=== PATIENT | female | born 1995 | race Caucasian/White ===

== ENCOUNTER 2017-04-29 18:04 | Emergency (ER) | payer OTHER ==
--- NOTE | 2017-04-29 19:07 | ED Physician Documentation ---
Fall - HISTORIAN Historian: patient, parent - HPI Stated Complaint: Left ankle injury Chief Complaint: Lower Extremity Injury Additional Information: fell down 7-8 fl stairs w/lt ankle pain swelling ess inability to ambulate Onset: just prior to arrival Where: home Context: slipped r: moderate Associated Symptoms:: no loss of consciousness Location of Pain/Injury: denies: head, neck, upper back, mid back, lower back Injury to Right Extremity: none - ROS CONST: no problems - PAST HX Past History: none Allergies/Adverse Reactions: Allergies Allergy/AdvReac Type Severity Reaction Status Date / Time No Known Drug Allergies Allergy Unknown Verified 04/29/17 18:23 Home Medications: Ambulatory Orders Medication Instructions Recorded NK [NK] 03/18/15 - SOCIAL HX Smoking History: less than 1 pack/day Alcohol Use: none - FAMILY HX Family History: no significant history - VITAL SIGNS Vital Signs: Vital Signs Temp Pulse Resp BP Pulse Ox 98.2 F 79 16 118/60 98 04/29/17 18:17 04/29/17 18:17 04/29/17 18:17 04/29/17 18:17 04/29/17 18:17 - REVIEWED ASSESSMENTS Nursing Assessment Reviewed: Yes Vitals Reviewed: Yes ED Results Lab/Radiology - Radiology Radiology Impressions: lt ankle=no fx seen - Orders Orders: ED Orders Category Date Time Status ANKLE 3 VIEWS OR MORE [RAD] Stat Exams 04/29/17 Ordered UA [URINALYSIS] Routine Lab 04/29/17 Ordered URINE HCG Stat Lab 04/29/17 Ordered Fall Physical Exam - Physical Exam General Appearance: mild distress, moderate distress Head: No: no swelling, no obvious injury Neck: non-tender, painless ROM Eye: STEPHANIE, EOMI ENT: nml external inspection Resp/CVS: chest non-tender, breath sounds nml, heart sounds nml Abdomen: soft, non-tender Neuro: oriented x3, sensation nml, motor nml, mood/affect nml Skin: color nml Back: normal inspection - [place] Coma Score Eyes Open: Spontaneous Speech: Oriented Motor: Obeys Commands Discharge Clincal Impression: LEFT ANKLE SPRAIN Referrals: Sabrina Angulo MD [Primary Care Provider] - 2 Days Home Medications: Ambulatory Orders NK [NK] 03/18/15 Condition: Good Disposition: 01 HOME, SELF-CARE Decision to Admit: NO Decision Time: 19:06
[2017-04-29 19:14] VITALS: BP 122/68
--- NOTE | 2017-04-30 07:18 | Diagnostic Imaging Report ---
JAYNA CABRAL~ [facility] [address] [facility].[address] [address] ~ ~ ~ ~ Report Submission Date: Apr 29, 2017 7:00:16 PM CDT Patient ~ Study Name: BEN DODD ~ Date: Apr 29, 2017 6:37:35 PM CDT ~ Modality Type: CR Gender: F ~ Description: LOWER EXTREMITY : 94 ~ Institution: [facility] Physician: JAYNA CABRAL ~ ~ ~ ~ Left ankle, 3 views History: Fall, injury, pain Findings: The osseous, joints and soft tissue structures are normal. Impression: Normal. ~ Electronically signed on Apr 29, 2017 7:00:16 PM CDT by: Eulogio MCCLAIN
== END 2017-04-29 19:09 | disposition home or self-care (01) ==
LOC: ED 18:04
DX: S93.402A Sprain of unspecified ligament of left ankle, initial encounter (principal); X58.XXXA Exposure to other specified factors, initial encounter; Y93.9 Activity, unspecified; Y99.9 Unspecified external cause status
CPT/HCPCS: 73610; 99283

== ENCOUNTER 2018-06-30 19:41 | Emergency (ER) | payer OTHER ==
[2018-06-30 19:58] VITALS: BP 116/64
--- NOTE | 2018-06-30 20:01 | ED Physician Documentation ---
General Adult - HISTORIAN Historian: patient - HPI Stated Complaint: Left index finger laceration Chief Complaint: Laceration/Recheck/Suture Onset: hours (5) Timing: still present Severity: mild Further Comments: yes (she was using a knife and cut the tip of her left index finger. She is not sure when last tetanus shot was (we did find record) and she had normal feeling. Normal senstaion.) - ROS CONST: no problems - PAST HX Past History: none Surgeries/Procedures: other (T&A) Immunizations: UTD Allergies/Adverse Reactions: Allergies Allergy/AdvReac Type Severity Reaction Status Date / Time No Known Drug Allergies Allergy Unknown Verified 06/30/18 19:58 Home Medications: Ambulatory Orders Medication Instructions Recorded NK 03/18/15 - SOCIAL HX Smoking History: non-smoker Alcohol Use: none Drug Use: none - FAMILY HX Family History: No - VITAL SIGNS Vital Signs: Vital Signs Temp Pulse Resp BP Pulse Ox 99.1 F 92 H 18 116/64 100 06/30/18 20:15 06/30/18 20:15 06/30/18 20:15 06/30/18 20:15 06/30/18 20:15 - REVIEWED ASSESSMENTS Nursing Assessment Reviewed: Yes Vitals Reviewed: Yes ED Results Lab/Radiology - Orders Orders: ED Orders Category Date Time Status Cleanse with NS and Chlorhexid 1T Care 06/30/18 20:01 Active General Adult Physical Exam - PHYSICAL EXAM GENERAL APPEARANCE: no distress EENT: eye inspection normal NECK: normal inspection RESPIRATORY: no resp distress, chest non-tender, breath sounds normal CVS: reg rate & rhythm, heart sounds normal, equal pulses ABDOMEN: soft SKIN: warm/dry, other (left index finger with very superficial cut approx 2 cm in a half og pattern. FROM + Sensation + pulses + ) EXTREMITIES: non-tender, normal range of motion, no evidence of injury, no edema NEURO: oriented X3 Discharge Clincal Impression: Laceration Referrals: Sabrina Angulo MD [Primary Care Provider] - 2 Days Comments: 1. Keep area clean and dry 2. Notify PCP for any increased pain, redness, or drainage 3. Return to ER for any concerns Condition: Stable Disposition: 01 HOME, SELF-CARE Decision to Admit: NO Date of Decison to Admit: 06/30/18 Decision Time: 20:08
== END 2018-06-30 20:15 | disposition home or self-care (01) ==
LOC: ED 19:41
DX: S61.211A Laceration without foreign body of left index finger without damage to nail, initial encounter (principal); W26.8XXA Contact with other sharp object(s), not elsewhere classified, initial encounter; Y92.9 Unspecified place or not applicable; Y93.9 Activity, unspecified; Y99.9 Unspecified external cause status
CPT/HCPCS: 99282

== ENCOUNTER 2018-08-29 20:04 | Emergency (ER) | payer SELFPAY ==
--- NOTE | 2018-08-29 20:25 | ED Physician Documentation ---
General Adult - HISTORIAN Historian: patient - HPI Stated Complaint: rash under breast Chief Complaint: General Adult Additional Information: Lanced a pimple on right breast with a pin 5 days ago. Developed abscess that drained this evening, so came to ER. No previous abscesses. No recent antibiotics. No treatment other than ice and heat to the area. No other modifying factors or associated events. - ROS CONST: no problems - PAST HX Past History: none Surgeries/Procedures: other (tonsillectomy) Allergies/Adverse Reactions: Allergies Allergy/AdvReac Type Severity Reaction Status Date / Time No Known Drug Allergies Allergy Unknown Verified 08/29/18 20:18 Home Medications: Ambulatory Orders Medication Instructions Recorded NK 03/18/15 - SOCIAL HX Smoking History: non-smoker - FAMILY HX Family History: No - VITAL SIGNS Vital Signs: Vital Signs Temp Pulse Resp BP Pulse Ox 116/64 06/30/18 20:15 - REVIEWED ASSESSMENTS Nursing Assessment Reviewed: Yes Vitals Reviewed: Yes ED Results Lab/Radiology - Orders Orders: ED Orders Category Date Time Status Sulfamethoxazole/Trimethoprim [Bactrim Ds] Med 08/29/18 20:20 Once 1 each PO NOW ONE General Adult Physical Exam - PHYSICAL EXAM GENERAL APPEARANCE: moderate distress (crying, afraid) EENT: eye inspection normal, ENT inspection normal NECK: normal inspection, supple RESPIRATORY: no resp distress BACK: normal inspection SKIN: warm/dry, normal color (except right breast, 4-7 o'clock, with erythema, central opening with serous drainage. No induration or fluctuance.) EXTREMITIES: normal range of motion (gait and stance) NEURO: CN's nml as tested, motor nml, sensation nml Discharge Clincal Impression: Cutaneous abscess Referrals: Primary Doctor,No [Primary Care Provider] - 2 Days Additional Instructions: Use thorough handwashing. Don't share clothes or linens. Apply warm compresses to the area 4 times a day. Take all the antibiotics as prescribed until they are completely gone. Return to the ER if you are not getting better after 48 hours of antibiotics. Condition: Good Disposition: 01 HOME, SELF-CARE Decision to Admit: NO Decision Time: 20:30
[2018-08-29 20:32] VITALS: BP 118/63
[2018-08-29] MEDS: SULFAMETHOXAZOLE/TRIMETHOPRIM 1 EACH TABLET PO ONE (20:32)
== END 2018-08-29 20:36 | disposition home or self-care (01) ==
LOC: ED 20:04
DX: N61.1 Abscess of the breast and nipple (principal)
CPT/HCPCS: 99283; A9270

== ENCOUNTER 2019-09-10 01:21 | Emergency (ER) | payer SELFPAY ==
--- NOTE | 2019-09-10 01:54 | ED Physician Documentation ---
Sore Throat/Dental Pain - HISTORIAN Historian: patient - HPI Stated Complaint: "My throat feels like it my be swollen I am coughing up chunks" Chief Complaint: Sore Throat Onset: days ago (3) Context: Possible Infection Associated Symptoms: sore throat, moderate, runny nose, congestion. denies: fever, chills, unable to swallow Further Comments: yes (She states that her throat feels swollen she feels from coughing. She has a sore throat. She reports she has felt this way for three days tonight she decided to look in the mirror and she felt the back of her throat (not the front on the outside) looked like it was swollen and after discussion she could not see the back so she got scared and they came into the ER. NO fever Denies shortness of air. She) - ROS CONST: no problems CVS/RESP: denies: chest pain, shortness of breath GI/: denies: nausea MS/SKIN/LYMPH: denies: rash NEURO/PSYCH: denies: headache - PAST HX Past History: none Allergies/Adverse Reactions: Allergies Allergy/AdvReac Type Severity Reaction Status Date / Time No Known Drug Allergies Allergy Unknown Verified 09/10/19 01:40 Home Medications: Ambulatory Orders Medication Instructions Recorded NK 09/10/19 - SOCIAL HX Smoking History: quit less than 1 year Alcohol Use: none Drug Use: none - FAMILY HX Family History: No - VITAL SIGNS Vital Signs: Vital Signs Temp Pulse Resp BP Pulse Ox 97.3 F L 74 16 131/89 99 09/10/19 01:32 09/10/19 01:32 09/10/19 01:32 09/10/19 01:32 09/10/19 01:32 - REVIEWED ASSESSMENTS Nursing Assessment Reviewed: Yes Vitals Reviewed: Yes Sore throat Physical Exam - EXAM General Appearance: no acute distress, alert Head/Neck: head nml inspection. No: pain over sinuses Eyes: eyes nml inspection, PERRL Mouth/Throat: lips nml, gums nml, pharynx nml, voice nml, no drooling, no air way problems, membranes nml Ear/Nose: nml inspection Respiratory: no resp. distress, breath sounds nml CVS: reg. rate & rhythm, heart sounds nml Abdomen: soft, normal bowel sounds, no distension Extremities: non-tender Skin: warm/dry Neuro/Psych: oriented x3 Discharge Clincal Impression: Sore throat Referrals: Primary Doctor,No [Primary Care Provider] - 2 Days Comments: 1. OTC meds as needed as directed for sinus drainage or pain 2. Continue warm fluids for comfort 3. Follow up with PCP in 2-4 days 4. Return to ER for any increased concerns Condition: Stable Disposition: 01 HOME, SELF-CARE Decision to Admit: NO Date of Decison to Admit: 09/10/19 Decision Time: 02:01
[2019-09-10 02:22] VITALS: BP 131/83
== END 2019-09-10 02:10 | disposition home or self-care (01) ==
LOC: ED 01:21
DX: J02.9 Acute pharyngitis, unspecified (principal); Z87.891 Personal history of nicotine dependence
CPT/HCPCS: 99281; 99282